=== PATIENT | female | born 1980 | race Caucasian/White ===

== ENCOUNTER 2020-07-28 08:42 | Day surgery (SDC) | payer OTHER ==
[~2020-07-28] VITALS: Ht 152.4 cm; Wt 58.0 kg
[~2020-07-28 08:42] MED LIST: CYCL10 PO; HAIR, SKIN AND1 EAC3 PO; HYDACE5 PO; IBUP600 PO; IBUP800 PO; MELATONIN TR 51 EAC2 PO; MULTIVITAMINS1 EAC3 PO; OXYACE5T PO; PROP10 PO; TRAM50 PO; TUMS500 MG PO; Verotin-Gr Cap1 EACH
== END 2020-07-28 12:03 | disposition home or self-care (01) ==
LOC: ORSCSDS 08:42
PROVIDERS: Obstetrics & Gynecology
PROC: 0UB74ZZ Excision of Bilateral Fallopian Tubes, Percutaneous Endoscopic Approach (ICD-10-PCS; principal; 2020-07-28 10:00)
DX: Z30.2 Encounter for sterilization (principal); Z87.891 Personal history of nicotine dependence
CPT/HCPCS: 88302; J0171; J0690; J1100; J1885; J2250; J2370; J2405; J2704; J2710; J3010; J7120

== ENCOUNTER → 2020-09-27 | Outpatient (CLI) | payer SELFPAY ==
[2020-09-27 12:01] LABS: Candida species (DNA Probe) Negative (NEGATIVE); G. vaginalis (DNA Probe) Positive (NEGATIVE); T. vaginalis (DNA Probe) Negative (NEGATIVE)
[2020-09-28 08:09] LABS: HBSAG SCREEN Negative (Negative); HEP A AB, IGM Negative (Negative); HEP B CORE AB, IGM Negative (Negative); HEP C VIRUS AB <0.1 (0.0-0.9); HIV SCREEN 4TH GENERATION WRFX Non Reactive (Non Reactive)
[2020-09-29 04:09] LABS: CHLAMYDIA TRACHOMATIS, NAA Negative (Negative)
== END ==
LOC: LAB 10:58 → LAB SHORT 10:58
PROVIDERS: Physician Assistant
DX: N72 Inflammatory disease of cervix uteri (principal); N76.0 Acute vaginitis
CPT/HCPCS: 80074; 86592; 87077; 87086; 87186; 87389; 87480; 87491; 87510; 87591; 87660